=== PATIENT | male | born 1970 | race Caucasian/White ===

== ENCOUNTER 2018-03-16 23:56 | Emergency (ER) | payer OTHER ==
[2018-03-17 01:39] LABS: ADD MAN DIFF? NO
[2018-03-17 01:42] LABS: BASOPHILS % 0.3 % (0.0-2.0); EOSINOPHILS # 0.2 10^3/ul (0.0-0.5); EOSINOPHILS % 2.1 % (0.0-7.0); HEMATOCRIT 43.1 % (42.0-52.0); HEMOGLOBIN 14.4 g/dl (14.0-18.0); LYMPHOCYTES % 22.1 % (15.0-51.0); MEAN CORPUSCULAR HEMOGLOBIN 27.9 pg (29.0-33.0); MEAN CORPUSCULAR HGB CONC 33.4 g/dl (32.0-37.0); MEAN CORPUSCULAR VOLUME 83.5 fl (82.0-101.0); MEAN PLATELET VOLUME 10.1 fl (7.4-10.4); MONOCYTE # 1.1 10^3/ul (0.3-0.9); MONOCYTES % 12.4 % (0.0-11.0); NEUTROPHIL # 5.7 10^3/ul (1.6-7.5); NEUTROPHILS % 62.7 % (39.0-77.0); PLATELET COUNT 255 10^3/UL (140-415); RED BLOOD COUNT 5.16 10^6/ul (4.70-6.10); RED CELL DISTRIBUTION WIDTH 13.2 % (11.5-14.5)
[2018-03-17] MEDS: morphine 4 MG/ML VIAL IV (01:47)
[2018-03-17] MEDS: SODIUM CHLORIDE 0.9% 1L BAG IV* (01:47)
[2018-03-17] MEDS: ONDANSETRON 4 MG INJ IV (01:47)
[2018-03-17 01:58] LABS: ADD UMIC YES; UR ASCORBIC ACID NEGATIVE (NEGATIVE); UR BACTERIA FEW /HPF (NONE SEEN); UR BILIRUBIN (Dip) NEGATIVE (NEGATIVE); UR BLOOD (Dip) 3+ mg/dL (NEGATIVE); UR BUDDING YEAST FEW /HPF (NONE SEEN); UR CLARITY CLOUDY (CLEAR); UR COLOR YELLOW (YELLOW); UR GLUCOSE (Dip) NEGATIVE (NEGATIVE); UR KETONES (Dip) NEGATIVE (NEGATIVE); UR LEUKOCYTE ESTERASE (Dip) 3+ Leu/ul (NEGATIVE); UR MUCUS FEW /HPF (NONE SEEN); UR NITRITE (Dip) POSITIVE (NEGATIVE); UR RBC > 182 /HPF (0-5); UR SPECIFIC GRAVITY (Dip) 1.013 (1.003-1.030); UR TOTAL PROTEIN (Dip) 2+ mg/dl (NEGATIVE); UR UROBILINOGEN (Dip) NEGATIVE (NEGATIVE); UR WBC > 182 /HPF (0-5)
[2018-03-17 02:00] LABS: INR 0.95; PROTIME 12.8 Sec (11.9-14.9)
[2018-03-17 02:01] LABS: PARTIAL THROMBOPLASTIN TIME 29.4 Sec (25.0-35.0)
[2018-03-17 02:02] LABS: ALANINE AMINOTRANSFERASE 50 IU/L (13-69); ALBUMIN 4.3 g/dl (3.3-4.9); ALBUMIN/GLOBULIN RATIO 1.34; ALKALINE PHOSPHATASE 96 IU/L (42-121); ANION GAP 11 (8-16); ASPARTATE AMINO TRANSFERASE 27 IU/L (15-46); BILIRUBIN,INDIRECT 0.7 mg/dl (0-1.1); BILIRUBIN,TOTAL 0.7 mg/dl (0.2-1.3); BLOOD UREA NITROGEN 19 mg/dl (7-20); CALCIUM 8.8 mg/dl (8.4-10.2); CARBON DIOXIDE 25 mmol/L (21-31); CHLORIDE 108 mmol/L (97-110); CREATININE 0.85 mg/dl (0.61-1.24); GLUCOSE 115 mg/dl (70-220); SODIUM 140 mmol/L (135-144); TOTAL PROTEIN 7.5 g/dl (6.1-8.1)
[2018-03-17 02:03] LABS: LACTIC ACID 1.2 mmol/L (0.5-2.0)
[2018-03-17 02:13] LABS: TROPONIN-I < 0.010 ng/ml (0.000-0.120)
[2018-03-17] MEDS: CEFTRIAXONE 1 GM/50 ML (PMX) 50 ML IVPB (02:15)
== END 2018-03-17 04:22 | disposition home or self-care (01) ==
LOC: E/R 23:56
DX: R50.9 Fever, unspecified (principal); J45.909 Unspecified asthma, uncomplicated; R10.9 Unspecified abdominal pain
CPT/HCPCS: 36415; 71045; 74176; 80053; 81001; 83605; 84484; 85025; 85610; 85730; 87040; 87086; 93005; 96374; 96375; 99285-25

== ENCOUNTER 2018-04-27 17:50 | Emergency (ER) | payer OTHER ==
[2018-04-27 19:40] LABS: ADD MAN DIFF? NO
[2018-04-27 19:45] LABS: BASOPHILS % 0.3 % (0.0-2.0); EOSINOPHILS # 0.2 10^3/ul (0.0-0.5); EOSINOPHILS % 1.3 % (0.0-7.0); HEMATOCRIT 44.7 % (42.0-52.0); HEMOGLOBIN 14.7 g/dl (14.0-18.0); LYMPHOCYTES # 2.5 10^3/ul (0.8-2.9); LYMPHOCYTES % 20.5 % (15.0-51.0); MEAN CORPUSCULAR HEMOGLOBIN 27.2 pg (29.0-33.0); MEAN CORPUSCULAR HGB CONC 32.9 g/dl (32.0-37.0); MEAN CORPUSCULAR VOLUME 82.8 fl (82.0-101.0); MEAN PLATELET VOLUME 9.8 fl (7.4-10.4); MONOCYTE # 1.2 10^3/ul (0.3-0.9); MONOCYTES % 9.6 % (0.0-11.0); NEUTROPHIL # 8.3 10^3/ul (1.6-7.5); PLATELET COUNT 254 10^3/UL (140-415); RED CELL DISTRIBUTION WIDTH 13.5 % (11.5-14.5)
[2018-04-27 19:45] LABS: WHITE BLOOD COUNT 12.1 10^3/ul (4.8-10.8)
[2018-04-27] MEDS: ONDANSETRON 4 MG INJ IV (19:47)
[2018-04-27] MEDS: SOD CHLORIDE 0.9% 1,000 ML IV ×2 (19:48→23:26)
[2018-04-27] MEDS: morphine 4 MG/ML VIAL IV (19:48)
[2018-04-27] MEDS ORDERED: ONDANSETRON 4 MG INJ IV (19:57)
[2018-04-27 20:00] LABS: ADD UMIC YES; UR ASCORBIC ACID NEGATIVE (NEGATIVE); UR BACTERIA FEW /HPF (NONE SEEN); UR BILIRUBIN (Dip) NEGATIVE (NEGATIVE); UR BLOOD (Dip) 2+ mg/dL (NEGATIVE); UR CLARITY CLEAR (CLEAR); UR COLOR STRAW (YELLOW); UR GLUCOSE (Dip) NEGATIVE (NEGATIVE); UR KETONES (Dip) NEGATIVE (NEGATIVE); UR LEUKOCYTE ESTERASE (Dip) 2+ Leu/ul (NEGATIVE); UR NITRITE (Dip) NEGATIVE (NEGATIVE); UR RBC 33 /HPF (0-5); UR SPECIFIC GRAVITY (Dip) 1.013 (1.003-1.030); UR TOTAL PROTEIN (Dip) NEGATIVE (NEGATIVE); UR UROBILINOGEN (Dip) NEGATIVE (NEGATIVE); UR WBC 18 /HPF (0-5)
[2018-04-27] MEDS: HYDROmorphONE 0.5 MG/0.5 ML SYG IV ×3 (20:02→23:26)
[2018-04-27 20:09] LABS: ALANINE AMINOTRANSFERASE 86 IU/L (13-69); ALBUMIN 4.2 g/dl (3.3-4.9); ALBUMIN/GLOBULIN RATIO 1.13; ALKALINE PHOSPHATASE 97 IU/L (42-121); ANION GAP 12 (8-16); ASPARTATE AMINO TRANSFERASE 49 IU/L (15-46); BILIRUBIN,INDIRECT 0.3 mg/dl (0-1.1); BILIRUBIN,TOTAL 0.3 mg/dl (0.2-1.3); BLOOD UREA NITROGEN 23 mg/dl (7-20); CALCIUM 9.3 mg/dl (8.4-10.2); CARBON DIOXIDE 27 mmol/L (21-31); CHLORIDE 105 mmol/L (97-110); CREATININE 1.48 mg/dl (0.61-1.24); GLUCOSE 107 mg/dl (70-220); LIPASE 95 U/L (23-300); POTASSIUM 4.1 mmol/L (3.5-5.1); SODIUM 140 mmol/L (135-144); TOTAL PROTEIN 7.9 g/dl (6.1-8.1)
[2018-04-27] MEDS: CIPROFLOXACIN 400MG/D5W 200 ML IVPB (21:05)
== END 2018-04-28 01:00 | disposition left against medical advice (07) ==
LOC: FTE 04-28 01:00
DX: N20.0 Calculus of kidney (principal); J45.909 Unspecified asthma, uncomplicated
CPT/HCPCS: 36415; 74176; 80053; 81001; 83690; 85025; 96374; 96375; 96376; 99285-25

== ENCOUNTER 2018-05-31 19:11 | Emergency (ER) | payer OTHER ==
[2018-05-31 19:40] LABS: URINE PH (Dip) POC 6.5 (5.0-8.5)
[2018-05-31 19:40] LABS: URINE BLOOD (Dip) POC 3+ (NEGATIVE); URINE GLUCOSE (Dip) POC Negative (NEGATIVE); URINE KETONES (Dip) POC Negative (NEGATIVE); URINE LEUKOCYTE EST (Dip) POC 1+ (NEGATIVE); URINE NITRITE (Dip) POC Negative (NEGATIVE); URINE TOTAL PROTEIN POC 2+ (NEGATIVE)
== END 2018-05-31 20:55 | disposition home or self-care (01) ==
LOC: FTE 19:11
DX: N39.0 Urinary tract infection, site not specified (principal); J45.909 Unspecified asthma, uncomplicated
CPT/HCPCS: 81003; 99283

== ENCOUNTER 2018-06-09 19:05 | Inpatient (IN) | payer OTHER ==
[2018-06-09 21:38] LABS: ADD MAN DIFF? NO
[2018-06-09 21:41] LABS: BASOPHIL # 0.1 10^3/ul (0.0-0.1); BASOPHILS % 0.6 % (0.0-2.0); EOSINOPHILS # 0.4 10^3/ul (0.0-0.5); EOSINOPHILS % 4.1 % (0.0-7.0); HEMATOCRIT 44.6 % (42.0-52.0); HEMOGLOBIN 14.7 g/dl (14.0-18.0); LYMPHOCYTES # 3.9 10^3/ul (0.8-2.9); LYMPHOCYTES % 44.9 % (15.0-51.0); MEAN CORPUSCULAR HEMOGLOBIN 27.5 pg (29.0-33.0); MEAN CORPUSCULAR VOLUME 83.5 fl (82.0-101.0); MEAN PLATELET VOLUME 10.1 fl (7.4-10.4); MONOCYTE # 0.6 10^3/ul (0.3-0.9); MONOCYTES % 7.2 % (0.0-11.0); NEUTROPHIL # 3.7 10^3/ul (1.6-7.5); NEUTROPHILS % 42.9 % (39.0-77.0); PLATELET COUNT 356 10^3/UL (140-415); RED BLOOD COUNT 5.34 10^6/ul (4.70-6.10); RED CELL DISTRIBUTION WIDTH 13.3 % (11.5-14.5)
[2018-06-09 21:41] LABS: WHITE BLOOD COUNT 8.6 10^3/ul (4.8-10.8)
[2018-06-09 21:46] LABS: ADD UMIC YES; UR ASCORBIC ACID NEGATIVE (NEGATIVE); UR BILIRUBIN (Dip) NEGATIVE (NEGATIVE); UR BLOOD (Dip) 3+ mg/dL (NEGATIVE); UR CLARITY SLIGHTLY CLOUDY (CLEAR); UR COLOR AMBER (YELLOW); UR GLUCOSE (Dip) NEGATIVE (NEGATIVE); UR KETONES (Dip) NEGATIVE (NEGATIVE); UR LEUKOCYTE ESTERASE (Dip) 2+ Leu/ul (NEGATIVE); UR NITRITE (Dip) POSITIVE (NEGATIVE); UR RBC > 182 /HPF (0-5); UR SPECIFIC GRAVITY (Dip) 1.014 (1.003-1.030); UR TOTAL PROTEIN (Dip) 2+ mg/dl (NEGATIVE); UR UROBILINOGEN (Dip) NEGATIVE (NEGATIVE); UR WBC 40 /HPF (0-5)
[2018-06-09 21:59] LABS: INR 0.87; PROTIME 11.9 Sec (11.9-14.9); PT RATIO 0.9
[2018-06-09] MEDS: CEFTRIAXONE 1 GM/50 ML (PMX) 50 ML IVPB (21:59)
[2018-06-09] MEDS: KETOROLAC 30 MG INJ IV (21:59)
[2018-06-09 22:00] LABS: PARTIAL THROMBOPLASTIN TIME 29.4 Sec (23.0-35.0)
[2018-06-09] MEDS: SODIUM CHLORIDE 0.9% 1L BAG IV* (22:00)
[2018-06-09] MEDS ORDERED: ONDANSETRON 4 MG INJ IV (22:00)
[2018-06-09] MEDS ORDERED: ACETAMINOPHEN 325 MG TAB PO (22:00)
[2018-06-09 22:05] LABS: ANION GAP 13 (8-16); BLOOD UREA NITROGEN 18 mg/dl (7-20); CALCIUM 9.2 mg/dl (8.4-10.2); CARBON DIOXIDE 26 mmol/L (21-31); CHLORIDE 105 mmol/L (97-110); CREATININE 1.04 mg/dl (0.61-1.24); GLUCOSE 112 mg/dl (70-220); POTASSIUM 3.8 mmol/L (3.5-5.1); SODIUM 140 mmol/L (135-144)
[2018-06-09 22:07] LABS: LACTIC ACID 1.4 mmol/L (0.5-2.0)
[2018-06-09 22:16] LABS: TROPONIN-I < 0.012 ng/ml (0.000-0.120)
[2018-06-10] MEDS ORDERED: DOCUSATE SODIUM 100 MG CAP PO
[2018-06-10] MEDS ORDERED: ACETAMINOPHEN 325 MG TAB PO
[2018-06-10] MEDS ORDERED: MONTELUKAST 10 MG TAB PO
[2018-06-10 00:24] LABS: LACTIC ACID 1.1 mmol/L (0.5-2.0)
[2018-06-10 02:22] LABS: LACTIC ACID 2.7 mmol/L (0.5-2.0)
[2018-06-10] MEDS: SOD CHLORIDE 0.9% 500 ML IV (03:20)
[2018-06-10] MEDS: SOD CHLORIDE 0.9% 1,000 ML IV ×3 (04:35→15:51)
[2018-06-10] MEDS: KETOROLAC 15 MG INJ IV ×2 (05:30→20:44)
[2018-06-10] MEDS: PANTOPRAZOLE 40 MG INJ IV (05:31)
[2018-06-10 06:55] LABS: ADD MAN DIFF? NO
[2018-06-10 07:00] LABS: WHITE BLOOD COUNT 5.5 10^3/ul (4.8-10.8)
[2018-06-10 07:00] LABS: BASOPHILS % 0.7 % (0.0-2.0); EOSINOPHILS # 0.3 10^3/ul (0.0-0.5); EOSINOPHILS % 6.1 % (0.0-7.0); HEMATOCRIT 39.4 % (42.0-52.0); LYMPHOCYTES # 2.6 10^3/ul (0.8-2.9); LYMPHOCYTES % 46.7 % (15.0-51.0); MEAN CORPUSCULAR HEMOGLOBIN 27.5 pg (29.0-33.0); MEAN CORPUSCULAR VOLUME 83.3 fl (82.0-101.0); MEAN PLATELET VOLUME 10.1 fl (7.4-10.4); MONOCYTE # 0.6 10^3/ul (0.3-0.9); MONOCYTES % 10.1 % (0.0-11.0); NEUTROPHILS % 36.2 % (39.0-77.0); PLATELET COUNT 305 10^3/UL (140-415); RED BLOOD COUNT 4.73 10^6/ul (4.70-6.10); RED CELL DISTRIBUTION WIDTH 13.4 % (11.5-14.5)
[2018-06-10 07:33] LABS: ALANINE AMINOTRANSFERASE 96 IU/L (13-69); ALBUMIN 2.9 g/dl (3.3-4.9); ALKALINE PHOSPHATASE 79 IU/L (42-121); ANION GAP 11 (8-16); ASPARTATE AMINO TRANSFERASE 55 IU/L (15-46); BILIRUBIN,INDIRECT 0.2 mg/dl (0-1.1); BILIRUBIN,TOTAL 0.2 mg/dl (0.2-1.3); BLOOD UREA NITROGEN 14 mg/dl (7-20); CALCIUM 8.3 mg/dl (8.4-10.2); CARBON DIOXIDE 23 mmol/L (21-31); CHLORIDE 111 mmol/L (97-110); CREATININE 0.81 mg/dl (0.61-1.24); GLUCOSE 95 mg/dl (70-220); POTASSIUM 3.4 mmol/L (3.5-5.1); SODIUM 142 mmol/L (135-144); TOTAL PROTEIN 5.8 g/dl (6.1-8.1)
[2018-06-10] MEDS: PHENAZOPYRIDINE 100 MG TAB PO ×3 (08:55→20:44)
[2018-06-10] MEDS: FLUTICASONE/VILANTEROL 200-25 INH DEVICE INH (08:55)
[2018-06-10 09:35] LABS: LACTIC ACID 1.8 mmol/L (0.5-2.0)
[2018-06-10] MEDS ORDERED: LOPERAMIDE 2 MG CAP PO (18:00)
[2018-06-10] MEDS: CEFTRIAXONE 1 GM/50 ML (PMX) 50 ML IVPB (20:44)
[2018-06-10] MEDS: ZOLPIDEM 5 MG TAB PO (22:01)
[2018-06-11] MEDS: SOD CHLORIDE 0.9% 1,000 ML IV ×2 (03:17→13:45)
[2018-06-11] MEDS: PANTOPRAZOLE 40 MG INJ IV (05:23)
[2018-06-11 05:50] LABS: ADD MAN DIFF? NO
[2018-06-11 05:56] LABS: BASOPHILS % 0.6 % (0.0-2.0); EOSINOPHILS # 0.4 10^3/ul (0.0-0.5); EOSINOPHILS % 5.5 % (0.0-7.0); HEMATOCRIT 39.4 % (42.0-52.0); HEMOGLOBIN 13.2 g/dl (14.0-18.0); LYMPHOCYTES # 2.3 10^3/ul (0.8-2.9); LYMPHOCYTES % 36.3 % (15.0-51.0); MEAN CORPUSCULAR HEMOGLOBIN 27.8 pg (29.0-33.0); MEAN CORPUSCULAR HGB CONC 33.5 g/dl (32.0-37.0); MEAN CORPUSCULAR VOLUME 82.9 fl (82.0-101.0); MEAN PLATELET VOLUME 10.1 fl (7.4-10.4); MONOCYTE # 0.5 10^3/ul (0.3-0.9); MONOCYTES % 8.3 % (0.0-11.0); NEUTROPHIL # 3.1 10^3/ul (1.6-7.5); PLATELET COUNT 293 10^3/UL (140-415); RED BLOOD COUNT 4.75 10^6/ul (4.70-6.10); RED CELL DISTRIBUTION WIDTH 13.6 % (11.5-14.5)
[2018-06-11 05:56] LABS: WHITE BLOOD COUNT 6.4 10^3/ul (4.8-10.8)
[2018-06-11 06:17] LABS: ANION GAP 10 (8-16); BLOOD UREA NITROGEN 14 mg/dl (7-20); CALCIUM 8.5 mg/dl (8.4-10.2); CARBON DIOXIDE 23 mmol/L (21-31); CHLORIDE 113 mmol/L (97-110); CREATININE 0.79 mg/dl (0.61-1.24); GLUCOSE 107 mg/dl (70-220); POTASSIUM 3.7 mmol/L (3.5-5.1); SODIUM 142 mmol/L (135-144)
[2018-06-11] MEDS: FLUTICASONE/VILANTEROL 200-25 INH DEVICE INH (08:46)
[2018-06-11] MEDS: PHENAZOPYRIDINE 100 MG TAB PO ×3 (08:46→20:15)
[2018-06-11] MEDS: INFLUENZA VIRUS VACCINE 0.5 ML (DISPENSING) IM* (08:47)
[2018-06-11] MEDS: FOSFOMYCIN 3 GM PACKET PO (15:46)
[2018-06-11] MEDS: ZYVOX 600 MG TAB PO (20:15)
[2018-06-11] MEDS: KETOROLAC 15 MG INJ IV (22:05)
[2018-06-11] MEDS: ZOLPIDEM 5 MG TAB PO (23:37)
[2018-06-12] MEDS: SOD CHLORIDE 0.9% 1,000 ML IV ×2 (05:40→20:35)
[2018-06-12] MEDS: PANTOPRAZOLE 40 MG INJ IV (05:40)
[2018-06-12 05:56] LABS: ALANINE AMINOTRANSFERASE 88 IU/L (13-69); ALBUMIN 3.5 g/dl (3.3-4.9); ALBUMIN/GLOBULIN RATIO 1.25; ALKALINE PHOSPHATASE 84 IU/L (42-121); ANION GAP 11 (8-16); ASPARTATE AMINO TRANSFERASE 52 IU/L (15-46); BILIRUBIN,INDIRECT 0.3 mg/dl (0-1.1); BILIRUBIN,TOTAL 0.3 mg/dl (0.2-1.3); BLOOD UREA NITROGEN 11 mg/dl (7-20); CALCIUM 8.4 mg/dl (8.4-10.2); CARBON DIOXIDE 23 mmol/L (21-31); CHLORIDE 112 mmol/L (97-110); CREATININE 0.79 mg/dl (0.61-1.24); GLUCOSE 100 mg/dl (70-220); POTASSIUM 3.8 mmol/L (3.5-5.1); SODIUM 142 mmol/L (135-144); TOTAL PROTEIN 6.3 g/dl (6.1-8.1)
[2018-06-12] MEDS: PHENAZOPYRIDINE 100 MG TAB PO ×3 (08:29→20:35)
[2018-06-12] MEDS: ZYVOX 600 MG TAB PO ×2 (08:29→20:35)
[2018-06-12] MEDS: FLUTICASONE/VILANTEROL 200-25 INH DEVICE INH (08:30)
[2018-06-12] MEDS: ONDANSETRON 4 MG INJ IV (17:49)
[2018-06-12] MEDS: ZOLPIDEM 5 MG TAB PO (22:28)
[2018-06-13] MEDS: PANTOPRAZOLE 40 MG INJ IV (05:55)
[2018-06-13] MEDS: ZYVOX 600 MG TAB PO ×2 (08:42→21:19)
[2018-06-13] MEDS: PHENAZOPYRIDINE 100 MG TAB PO ×3 (08:42→21:19)
[2018-06-13] MEDS: FLUTICASONE/VILANTEROL 200-25 INH DEVICE INH (08:44)
[2018-06-13] MEDS: SOD CHLORIDE 0.9% 1,000 ML IV (11:32)
[2018-06-13] MEDS: ZOLPIDEM 5 MG TAB PO (21:21)
[2018-06-14] MEDS: SOD CHLORIDE 0.9% 1,000 ML IV ×3 (04:41→18:11)
[2018-06-14] MEDS: DIPHENHYDRAMINE 50 MG INJ IV (06:14)
[2018-06-14] MEDS: PANTOPRAZOLE 40 MG INJ IV (06:20)
[2018-06-14] MEDS: PHENAZOPYRIDINE 100 MG TAB PO ×3 (08:40→20:42)
[2018-06-14] MEDS: ZYVOX 600 MG TAB PO ×2 (08:40→20:42)
[2018-06-14] MEDS: FLUTICASONE/VILANTEROL 200-25 INH DEVICE INH (08:40)
[2018-06-14] MEDS: traMADol 50 MG TAB PO (20:42)
[2018-06-14] MEDS: ZOLPIDEM 5 MG TAB PO (22:13)
[2018-06-15] MEDS: SOD CHLORIDE 0.9% 1,000 ML IV ×2 (00:36→21:01)
[2018-06-15] MEDS: PANTOPRAZOLE 40 MG INJ IV (05:35)
[2018-06-15] MEDS: PHENAZOPYRIDINE 100 MG TAB PO ×3 (08:19→21:00)
[2018-06-15] MEDS: FLUTICASONE/VILANTEROL 200-25 INH DEVICE INH (08:19)
[2018-06-15] MEDS: ZYVOX 600 MG TAB PO ×2 (08:19→21:00)
[2018-06-15 09:13] LABS: ANION GAP 13 (8-16); BLOOD UREA NITROGEN 15 mg/dl (7-20); CALCIUM 9.2 mg/dl (8.4-10.2); CARBON DIOXIDE 25 mmol/L (21-31); CREATININE 0.88 mg/dl (0.61-1.24); GLUCOSE 98 mg/dl (70-220); POTASSIUM 4.2 mmol/L (3.5-5.1); SODIUM 142 mmol/L (135-144)
[2018-06-15 09:18] LABS: CHLORIDE 108 mmol/L (97-110)
[2018-06-15 09:22] LABS: INR 0.95; PROTIME 12.8 Sec (11.9-14.9)
[2018-06-15 09:23] LABS: PARTIAL THROMBOPLASTIN TIME 27.9 Sec (23.0-35.0)
[2018-06-15] MEDS: DIPHENHYDRAMINE 50 MG INJ IV (10:27)
[2018-06-15] MEDS ORDERED: ROCURONIUM 50 MG INJ (17:53)
[2018-06-15] MEDS ORDERED: PROPOFOL 20 ML (17:53)
[2018-06-15] MEDS ORDERED: MIDAZOLAM 1 MG/ML 2 ML INJ (17:54)
[2018-06-15] MEDS ORDERED: LIDOCAINE 1% (MDV) 20 ML INJ (17:54)
[2018-06-15] MEDS ORDERED: HYDROmorphONE 1 MG/5 ML IV SYRINGE IV (18:00)
[2018-06-15] MEDS ORDERED: SUGAMMADEX SODIUM 200 MG/2 ML VIAL IV (18:11)
[2018-06-15] MEDS ORDERED: PHENYLephrine (100 MCG/ML) 5ML SYG (19:02)
[2018-06-15] MEDS: HYDROmorphONE 1 MG/5 ML IV SYRINGE IV (19:08)
[2018-06-15] MEDS: ZOLPIDEM 5 MG TAB PO (21:00)
[2018-06-16] MEDS: PANTOPRAZOLE 40 MG INJ IV (05:19)
[2018-06-16] MEDS: ZYVOX 600 MG TAB PO ×2 (08:39→20:02)
[2018-06-16] MEDS: PHENAZOPYRIDINE 100 MG TAB PO ×3 (08:39→20:02)
[2018-06-16] MEDS: FLUTICASONE/VILANTEROL 200-25 INH DEVICE INH (08:39)
[2018-06-16] MEDS: SOD CHLORIDE 0.9% 1,000 ML IV (11:29)
[2018-06-16] MEDS: DIPHENHYDRAMINE 50 MG INJ IV (17:44)
[2018-06-16] MEDS ORDERED: TAMSULOSIN (SR) 0.4 MG CAP PO (19:43)
[2018-06-16] MEDS: TAMSULOSIN (SR) 0.4 MG CAP PO (20:02)
[2018-06-17] MEDS: SOD CHLORIDE 0.9% 1,000 ML IV (02:27)
[2018-06-17] MEDS: PANTOPRAZOLE 40 MG INJ IV (05:17)
[2018-06-17 07:51] LABS: ALANINE AMINOTRANSFERASE 121 IU/L (13-69); ALBUMIN 3.3 g/dl (3.3-4.9); ALBUMIN/GLOBULIN RATIO 1.03; ALKALINE PHOSPHATASE 89 IU/L (42-121); ANION GAP 10 (8-16); ASPARTATE AMINO TRANSFERASE 67 IU/L (15-46); BILIRUBIN,INDIRECT 0.7 mg/dl (0-1.1); BILIRUBIN,TOTAL 0.7 mg/dl (0.2-1.3); BLOOD UREA NITROGEN 13 mg/dl (7-20); CALCIUM 8.8 mg/dl (8.4-10.2); CARBON DIOXIDE 25 mmol/L (21-31); CHLORIDE 110 mmol/L (97-110); CREATININE 0.87 mg/dl (0.61-1.24); GLUCOSE 100 mg/dl (70-220); POTASSIUM 3.6 mmol/L (3.5-5.1); SODIUM 141 mmol/L (135-144); TOTAL PROTEIN 6.5 g/dl (6.1-8.1)
[2018-06-17] MEDS: FLUTICASONE/VILANTEROL 200-25 INH DEVICE INH (09:20)
[2018-06-17] MEDS: PHENAZOPYRIDINE 100 MG TAB PO ×2 (09:21→12:41)
[2018-06-17] MEDS: ZYVOX 600 MG TAB PO (09:21)
== END 2018-06-17 18:48 | disposition home or self-care (01) | DRG 690 ==
LOC: PP2 06-10 14:58 → E/R 19:05 → PP2 21:57
PROC: 0TP98DZ Removal of Intraluminal Device from Ureter, Via Natural or Artificial Opening Endoscopic (ICD-10-PCS; principal; 2018-06-15 16:30)
PROC: 3E0234Z Introduction of Serum, Toxoid and Vaccine into Muscle, Percutaneous Approach (ICD-10-PCS; 2018-06-15 17:56)
DX: N10 Acute pyelonephritis (principal); B95.2 Enterococcus as the cause of diseases classified elsewhere; Z16.22 Resistance to vancomycin related antibiotics; J45.909 Unspecified asthma, uncomplicated; E66.3 Overweight; Z68.29 Body mass index [BMI] 29.0-29.9, adult; K76.0 Fatty (change of) liver, not elsewhere classified; N20.0 Calculus of kidney; Z87.442 Personal history of urinary calculi; Z23 Encounter for immunization
CPT/HCPCS: 36415; 71045; 74018; 74176; 80048; 80053; 81001; 83605; 84484; 85025; 85610; 85730; 87040; 87045; 87075; 87081; 87086; 90686; 93005; 99291-25

== ENCOUNTER 2018-07-08 00:32 | Emergency (ER) | payer OTHER ==
[2018-07-08 02:03] LABS: URINE PH (Dip) POC 6.5 (5.0-8.5)
[2018-07-08 02:03] LABS: URINE BLOOD (Dip) POC Negative (NEGATIVE); URINE GLUCOSE (Dip) POC Negative (NEGATIVE); URINE KETONES (Dip) POC Negative (NEGATIVE); URINE LEUKOCYTE EST (Dip) POC Trace (NEGATIVE); URINE NITRITE (Dip) POC Negative (NEGATIVE); URINE TOTAL PROTEIN POC Negative (NEGATIVE)
[2018-07-08] MEDS: IBUPROFEN 600 MG TAB PO (02:13)
[2018-07-08 02:43] LABS: ADD UMIC NO; UR ASCORBIC ACID NEGATIVE (NEGATIVE); UR BILIRUBIN (Dip) NEGATIVE (NEGATIVE); UR BLOOD (Dip) NEGATIVE (NEGATIVE); UR CLARITY CLEAR (CLEAR); UR COLOR STRAW (YELLOW); UR GLUCOSE (Dip) NEGATIVE (NEGATIVE); UR KETONES (Dip) NEGATIVE (NEGATIVE); UR LEUKOCYTE ESTERASE (Dip) NEGATIVE Leu/ul (NEGATIVE); UR NITRITE (Dip) NEGATIVE (NEGATIVE); UR SPECIFIC GRAVITY (Dip) 1.011 (1.003-1.030); UR TOTAL PROTEIN (Dip) NEGATIVE (NEGATIVE); UR UROBILINOGEN (Dip) NEGATIVE (NEGATIVE)
[2018-07-08] MEDS: SODIUM CHLORIDE 0.9% 1L BAG IV* (02:47)
[2018-07-08 02:57] LABS: ADD MAN DIFF? NO
[2018-07-08 03:00] LABS: BASOPHILS % 0.6 % (0.0-2.0); EOSINOPHILS # 0.3 10^3/ul (0.0-0.5); HEMATOCRIT 45.7 % (42.0-52.0); HEMOGLOBIN 15.1 g/dl (14.0-18.0); LYMPHOCYTES # 3.5 10^3/ul (0.8-2.9); LYMPHOCYTES % 50.2 % (15.0-51.0); MEAN CORPUSCULAR HEMOGLOBIN 27.8 pg (29.0-33.0); MEAN CORPUSCULAR VOLUME 84.2 fl (82.0-101.0); MEAN PLATELET VOLUME 10.2 fl (7.4-10.4); MONOCYTE # 0.8 10^3/ul (0.3-0.9); MONOCYTES % 10.8 % (0.0-11.0); NEUTROPHIL # 2.4 10^3/ul (1.6-7.5); PLATELET COUNT 250 10^3/UL (140-415); RED BLOOD COUNT 5.43 10^6/ul (4.70-6.10); RED CELL DISTRIBUTION WIDTH 14.6 % (11.5-14.5)
[2018-07-08 03:19] LABS: ALANINE AMINOTRANSFERASE 134 IU/L (13-69); ALBUMIN 4.3 g/dl (3.3-4.9); ALBUMIN/GLOBULIN RATIO 1.26; ALKALINE PHOSPHATASE 102 IU/L (42-121); ANION GAP 11 (5-13); ASPARTATE AMINO TRANSFERASE 68 IU/L (15-46); BILIRUBIN,INDIRECT 0.2 mg/dl (0-1.1); BILIRUBIN,TOTAL 0.2 mg/dl (0.2-1.3); BLOOD UREA NITROGEN 16 mg/dl (7-20); CALCIUM 9.2 mg/dl (8.4-10.2); CARBON DIOXIDE 22 mmol/L (21-31); CHLORIDE 110 mmol/L (97-110); CREATININE 0.94 mg/dl (0.61-1.24); Estimated GFR > 60 mL/min (>60); GLUCOSE 89 mg/dl (70-220); POTASSIUM 3.8 mmol/L (3.5-5.1); SODIUM 143 mmol/L (135-144); TOTAL PROTEIN 7.7 g/dl (6.1-8.1)
[2018-07-08 03:21] LABS: INR 0.86; PROTIME 11.8 Sec (11.9-14.9); PT RATIO 0.9
[2018-07-08 03:22] LABS: PARTIAL THROMBOPLASTIN TIME 29.5 Sec (23.0-35.0)
[2018-07-08 03:29] LABS: TROPONIN-I < 0.012 ng/ml (0.000-0.120)
== END 2018-07-08 05:55 | disposition home or self-care (01) ==
LOC: FTE 00:32 → E/R 05:55
DX: M79.10 Myalgia, unspecified site (principal); E86.0 Dehydration; J45.909 Unspecified asthma, uncomplicated; A41.9 Sepsis, unspecified organism
CPT/HCPCS: 36415; 71045; 74176; 80053; 81003; 83605; 84484; 85025; 85610; 85730; 87040; 87086; 93005; 99285-25

== ENCOUNTER 2019-04-20 17:48 | Emergency (ER) | payer OTHER ==
[2019-04-20] MEDS: IPRATROPIUM (NEB) 0.5 MG/2.5 ML AMP NEB (18:06)
[2019-04-20] MEDS: ALBUTEROL 0.083% (NEB) 2.5 MG/3 ML AMP NEB (18:06)
[2019-04-20 18:14] LABS: ADD MAN DIFF? NO
[2019-04-20 18:15] LABS: BASOPHILS % 0.3 % (0.0-2.0); EOSINOPHILS # 0.1 10^3/ul (0.0-0.5); EOSINOPHILS % 1.1 % (0.0-7.0); HEMATOCRIT 47.3 % (42.0-52.0); HEMOGLOBIN 15.9 g/dl (14.0-18.0); LYMPHOCYTES # 2.4 10^3/ul (0.8-2.9); LYMPHOCYTES % 24.3 % (15.0-51.0); MEAN CORPUSCULAR HEMOGLOBIN 28.3 pg (29.0-33.0); MEAN CORPUSCULAR HGB CONC 33.6 g/dl (32.0-37.0); MEAN CORPUSCULAR VOLUME 84.3 fl (82.0-101.0); MEAN PLATELET VOLUME 10.5 fl (7.4-10.4); MONOCYTE # 0.7 10^3/ul (0.3-0.9); MONOCYTES % 7.2 % (0.0-11.0); NEUTROPHIL # 6.6 10^3/ul (1.6-7.5); NEUTROPHILS % 66.8 % (39.0-77.0); PLATELET COUNT 247 10^3/UL (140-415); RED BLOOD COUNT 5.61 10^6/ul (4.70-6.10); RED CELL DISTRIBUTION WIDTH 13.7 % (11.5-14.5)
[2019-04-20 18:15] LABS: WHITE BLOOD COUNT 9.9 10^3/ul (4.8-10.8)
[2019-04-20] MEDS: CEFTRIAXONE 1 GM/50 ML (PMX) 50 ML IVPB (18:15)
[2019-04-20] MEDS: ACETAMINOPHEN 325 MG TAB PO (18:15)
[2019-04-20] MEDS: SODIUM CHLORIDE 0.9% 1L BAG IV* (18:16)
[2019-04-20] MEDS: DEXAMETHASONE 10 MG/ML 1 ML INJ IV (18:16)
[2019-04-20 18:35] LABS: ALANINE AMINOTRANSFERASE 84 IU/L (13-69); ALBUMIN 4.6 g/dl (3.3-4.9); ALBUMIN/GLOBULIN RATIO 1.35; ALKALINE PHOSPHATASE 98 IU/L (42-121); ANION GAP 11 (5-13); ASPARTATE AMINO TRANSFERASE 46 IU/L (15-46); BILIRUBIN,INDIRECT 0.4 mg/dl (0-1.1); BILIRUBIN,TOTAL 0.4 mg/dl (0.2-1.3); BLOOD UREA NITROGEN 16 mg/dl (7-20); CALCIUM 9.6 mg/dl (8.4-10.2); CARBON DIOXIDE 23 mmol/L (21-31); CHLORIDE 107 mmol/L (97-110); CREATININE 1.08 mg/dl (0.61-1.24); Estimated GFR > 60 mL/min (>60); GLUCOSE 103 mg/dl (70-220); POTASSIUM 3.8 mmol/L (3.5-5.1); SODIUM 141 mmol/L (135-144)
[2019-04-20 18:37] LABS: INR 0.88; PT RATIO 0.9
[2019-04-20 18:38] LABS: PARTIAL THROMBOPLASTIN TIME 28.6 Sec (23.0-35.0)
[2019-04-20 18:45] LABS: TROPONIN-I < 0.012 ng/ml (0.000-0.120)
[2019-04-20] MEDS: KETOROLAC 15 MG INJ IV (18:54)
[2019-04-20] MEDS: ONDANSETRON 4 MG INJ IV (18:54)
[2019-04-20] MEDS: AZITHROMYCIN 500MG/NS (PMX) 250 ML IV (18:54)
[2019-04-20 19:19] LABS: ADD UMIC YES; UR ASCORBIC ACID NEGATIVE (NEGATIVE); UR BILIRUBIN (Dip) NEGATIVE (NEGATIVE); UR BLOOD (Dip) 1+ mg/dL (NEGATIVE); UR CLARITY CLEAR (CLEAR); UR COLOR YELLOW (YELLOW); UR GLUCOSE (Dip) NEGATIVE (NEGATIVE); UR KETONES (Dip) 1+ mg/dL (NEGATIVE); UR LEUKOCYTE ESTERASE (Dip) NEGATIVE Leu/ul (NEGATIVE); UR NITRITE (Dip) NEGATIVE (NEGATIVE); UR RBC 1 /HPF (0-5); UR SPECIFIC GRAVITY (Dip) 1.013 (1.003-1.030); UR TOTAL PROTEIN (Dip) NEGATIVE (NEGATIVE); UR UROBILINOGEN (Dip) NEGATIVE (NEGATIVE); UR WBC 3 /HPF (0-5)
== END 2019-04-20 20:15 | disposition home or self-care (01) ==
LOC: E/R 17:48
DX: J18.9 Pneumonia, unspecified organism (principal); R10.9 Unspecified abdominal pain; J45.901 Unspecified asthma with (acute) exacerbation; R40.2142 Coma scale, eyes open, spontaneous, at arrival to emergency department; R40.2362 Coma scale, best motor response, obeys commands, at arrival to emergency department; R40.2252 Coma scale, best verbal response, oriented, at arrival to emergency department
CPT/HCPCS: 36415; 71045; 74176; 80053; 81001; 83605; 84484; 85025; 85610; 85730; 87040-91; 87086; 93005; 94664; 96374; 96375; 99285-25